=== PATIENT | female | born 1980 | race American Indian/Alaskan Native ===

== ENCOUNTER 2019-06-19 08:04 | Day surgery (SDC) | payer BC ==
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
[2019-06-19] MEDS ORDERED: MARCAINE 0.5% INFILTRATI ONE ×2 (08:15→10:53)
[2019-06-19 08:58] LABS: Basophils % (Auto) 1.1 % (0.0-1.8); Eosinophils # (Auto) 0.1 K/mm3 (0.0-0.4); Eosinophils % (Auto) 1.9 % (0.0-4.3); Hematocrit 37.4 % (30.3-42.9); Hemoglobin 12.9 gm/dl (10.1-14.3); Lymphocytes # (Auto) 1.5 K/mm3 (1.2-5.4); Mean Corpuscular HGB Conc 34 % (30-34); Mean Corpuscular Volume 91 fl (79-97); Monocytes # (Auto) 0.3 K/mm3 (0.0-0.8); Monocytes % (Auto) 7.4 % (0.0-7.3); Platelet Count 296 K/mm3 (140-440); Red Cell Distribution Width 12.8 % (13.2-15.2)
[2019-06-19] MEDS ORDERED: LACTATED RINGERS 1,000 ML IV SCH (09:00)
[2019-06-19] MEDS ORDERED: DILAUDID IV PRN (09:37)
--- NOTE | 2019-06-19 09:43 | Anesthesia Consultation ---
Anesthesia Consult and Med Hx Date of service: 06/19/19 - Airway Anesthetic Teeth Evaluation: Good ROM Head & Neck: Adequate Mental/Hyoid Distance: Adequate Mallampati Class: Class I Intubation Access Assessment: Good (Hx vocal cord surgery for polyps. Denies hx difficult intubation.) - Pulmonary Exam CTA: Yes - Cardiac Exam Cardiac Exam: RRR - Pre-Operative Health Status ASA Pre-Surgery Classification: ASA1 Proposed Anesthetic Plan: General - Pulmonary Hx Smoking: No Hx Respiratory Symptoms: No - Cardiovascular System Hx Hypertension: No Hx Heart Attack/AMI: No - Central Nervous System CVA: No Hx Psychiatric Problems: No - Gastrointestinal Hx Gastroesophageal Reflux Disease: No - Endocrine Hx Renal Disease: No Hx Liver Disease: No Hx Insulin Dependent Diabetes: No Hx Non-Insulin Dependent Diabetes: No Hx Thyroid Disease: No - Other Systems Hx Obesity: No - Additional Comments Anesthesia Medical History Comments: Hx PONV.
--- NOTE | 2019-06-19 09:43 | Anesthesia Day of Surgery ---
Anesthesia Day of Surgery - Day of Surgery Patient Examined: Yes Patient H&P Reviewed: Yes Patient is NPO: Yes
[2019-06-19] MEDS ORDERED: NEURONTIN PO NR (10:00)
[2019-06-19] MEDS ORDERED: TRANSDERM-SCOP TD NR (10:00)
[2019-06-19] MEDS ORDERED: VERSED IV NR (10:00)
[2019-06-19] MEDS ORDERED: DILAUDID ONE (10:45)
[2019-06-19] MEDS ORDERED: DIPRIVAN 10 MG/ML IV ONE (10:46)
[2019-06-19] MEDS ORDERED: ZEMURON IV ONE (10:46)
[2019-06-19] MEDS ORDERED: NACL 0.9% IR ONE (10:54)
[2019-06-19] MEDS ORDERED: DECADRON ONE (11:02)
[2019-06-19] MEDS ORDERED: ZOFRAN ONE (11:02)
[2019-06-19] MEDS ORDERED: TORADOL ONE (11:52)
[2019-06-19] MEDS ORDERED: BLOXIVERZ ONE (11:54)
[2019-06-19] MEDS ORDERED: ROBINUL ONE (11:54)
--- NOTE | 2019-06-19 12:24 | Operative Report ---
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 General anesthesia was induced without difficulty. She was placed in dorsal lithotomy position. Prepped and draped in usual sterile manner. Castillo catheter was placed in her urinary bladder. A Sargis uterine manipulator was placed without difficulty. Attention was then switched to the patient's abdomen. An infra-umbilical incision was made with a scalpel. This incision was spread with a hemostat. A 5 mm trocar was placed in this incision while lifting high the abdominal wall. Intra- abdominal presence was verified directly with the laparoscope. The patient was then placed in Trendelenburg position and insufflated to approximately 3 L of CO 2 gas. The patient's findings as noted above. Accessory trochars were placed in each lower quadrant was made suprapubically. After incision was made with the scalpel an 8 mm trocar was placed through this incision in her right lower quadrant under direct visualization with no evidence of internal organ damage. The left lower quadrant same procedure was made placing a 5 mm trocar. Each of the Filshie clips were grasped with a grasper and with unilateral scissors a wedge incision was made into the fallopian tube successfully disengage in the Filshie clips from the tubes. The clips were removed through the 8 mm trocar successfully. Oozing from the left mesosalpinx was cauterized with bipolar cautery. At this time all instruments were removed. The patient was insufflated. The skin incisions were closed subcuticular with 4-0 Vicryl. Marcaine was given subcuticularly for postoperative pain relief. The patient tolerated procedure well. She was awakened in the operating room and a ccompanied to the recovery room in good condition.
--- NOTE | 2019-06-19 12:30 | Short Stay Summary ---
Short Stay Documentation Date of service: 06/19/19 - History H&P: dictated Past Medical History: other (SEE HPI) Past Surgical History: Other (SEE HPI) Social history: other (SEE HPI) - Allergies and Medications Current Medications: Allergies No Known Allergies Allergy (Unverified 06/12/19 14:49) Home Medications Medication Instructions Recorded Confirmed Last Taken Type Phentermine HCl [Adipex-P] 37.5 mg PO QAM 06/12/19 06/12/19 06/13/19 10:00 History oxyCODONE /ACETAMINOPHEN [Percocet 1 - 2 tab PO Q4H PRN #20 tablet 06/19/19 Unknown Rx 5/325 mg] Active Medications Celecoxib (Celebrex) 200 mg PO PREOP NR Stop: 06/19/19 16:00 Last Admin: 06/19/19 10:31 Dose: 200 mg Documented by: Gabapentin (Neurontin) 300 mg PO PREOP NR Stop: 06/19/19 16:00 Last Admin: 06/19/19 10:31 Dose: 300 mg Documented by: Hydromorphone HCl (Dilaudid) 0.5 mg IV Q10MIN PRN PRN Reason: Pain , Severe (7-10) Stop: 06/19/19 18:00 Lactated Ringer's (Lactated Ringers) 1,000 mls @ 100 mls/hr IV DIRECT ANTOLIN Last Admin: 06/19/19 08:45 Dose: 100 mls/hr Documented by: Midazolam HCl (Versed) 2 mg IV PREOP NR Stop: 06/19/19 23:59 Last Admin: 06/19/19 10:31 Dose: 2 mg Documented by: Scopolamine (Transderm-Scop) 1 each TD PREOP NR Stop: 06/19/19 23:00 Last Admin: 06/19/19 10:30 Dose: 1 each Documented by: - Brief post op/procedure progress note Date of procedure: 06/19/19 (See operative note) - Hospital course Hospital course: patient underwent above procedure without complication Post-operatve appointment scheduled - Disposition Condition at discharge: Good Disposition: DC-01 TO HOME OR SELFCARE - Discharge Diagnoses (1) Elective surgery Status: Acute Short Stay Discharge Plan Activity: advance as tolerated Diet: regular Wound: open to air Additional Instructions: Call office for fever,chills,nausea, vomiting or pain not controlled by medication. Follow up with: PRIMARY CARE, [Primary Care Provider] - 7 Days Forms: Outpatient Surgery DC Inst. Prescriptions: oxyCODONE /ACETAMINOPHEN [Percocet 5/325 mg] 1 - 2 tab PO Q4H PRN #20 tablet PRN Reason: Pain, Moderate
[2019-06-19 13:06] VITALS: BP 148/83
--- NOTE | 2019-06-19 16:53 | Post Anesthesia Evaluation ---
- Post Anesthesia Evaluation Patient Participated: Yes Airway Patent: Yes Stable Respiratory Function: Yes Nausea/Vomiting: No Temp > 96.8F: Yes Pain Manageable: Yes Adequeate Hydration: Yes Anesthesia Complications: No Block Receding Appropriately: Not Applicable Patient on Ventilator: No
== END 2019-06-19 08:05 | disposition home or self-care (01) ==
LOC: OR 08:04
PROVIDERS: ATTEND Obstetrics & Gynecology
DX: Z30.2 Encounter for sterilization (principal); Z79.899 Other long term (current) drug therapy; Z98.51 Tubal ligation status; Z72.89 Other problems related to lifestyle; Z98.890 Other specified postprocedural states
CPT/HCPCS: 36415; 58679; 81025; 85025; 88302; J1100; J1170; J1885; J2250; J2405; J2704; J2710; J7120; 88300